=== PATIENT | male | born 1960 | race Two or more races ===

== ENCOUNTER 2024-07-09 10:58 | Emergency (ER) | payer BC, OTHER ==
[~2024-07-09] VITALS: Ht 170.2 cm; Wt 110.6 kg
[2024-07-09] MEDS ORDERED: GENT0.3S10 RIGHTEYE (11:39)
[2024-07-09] MEDS ORDERED: SULF400T11 PO (11:39)
--- NOTE | 2024-07-09 11:41 | ED.PDOC ---
History of Present Illness HPI Comments 63 y.o male presents to the ED for an evaluation of a bug bite. Patient reports there is a tick on his right sided mid back x 1 week and presents with redness around bug bite. Patient also complains of right eye redness and irritation x 3 days, denies any debris, injury, or possible chemical exposure. Patient denies any fever, chills, nausea, vomiting, bleeding or discharge from big bite site. Chief Complaint: Insect Bite Time Seen by MD: 11:33 Primary Care Provider: NARGIS Alexander Notes: Nurses Notes, Medications, Allergies Allergies: Coded Allergies: NO KNOWN ALLERGIES (Unverified , 07/09/24) Home Meds Active Scripts Sulfamethoxazole-Trimethoprim (Bactrim) 1 Tab Tab, 1 TAB PO BID, #14 TAB Prov:BELA BERMEO MD 07/09/24 Gentamicin Sulfate (Gentamicin Sulfate) 0.3 % Ana, 2 DROP RIGHTEYE BID for 5 Days, #5 ML Prov:BELA BERMEO MD 07/09/24 Information Source: Patient Mode of Arrival: Ambulatory Severity: Moderate Timing: Weeks (1) Duration: Since onset Past Medical History PAST MEDICAL HISTORY: CKF, High Lipids, HTN Surgical History: Cholecystectomy Family History Family History: Reviewed,noncontributory to illness Social History Smoker: Non-Smoker Alcohol: Denies ETOH Use Drugs: Denies Drug Use Lives In: Home Constitutional: denies: chills, diaphoresis, fatigue, fever, malaise, sweats, weakness, others EENTM: reports: eye pain, eye redness; denies: blurred vision, double vision, ear bleeding, ear discharge, ear drainage, ear pain, ear ringing, hearing loss, mouth pain, mouth swelling, nasal discharge, nose bleeding, nose congestion, nose pain, photophobia, tearing, throat pain, throat swelling, voice changes, others Respiratory: denies: cough, hemoptysis, orthopnea, SOB at rest, shortness of breath, SOB with excertion, stridor, wheezing, others Cardiovascular: denies: chest pain, dizzy spells, diaphoresis, Dyspnea on exertion, edema, irregular heart beat, left arm pain, lightheadedness, palpitations, PND, syncope, others Gastrointestinal: denies: abdomen distended, abdominal pain, blood streaked bowels, constipated, diarrhea, dysphagia, difficulty swallowing, hematemesis, melena, nausea, poor appetite, poor fluid intake, rectal bleeding, rectal pain, vomiting, others Genitourinary: denies: burning, dysuria, flank pain, frequency, hematuria, incontinence, penile discharge, penile sore, pain, testicle pain, testicle sw elling, urgency, others Neurological: denies: dizziness, fainting, headache, left sided numbness, left sided weakness, numbness, paresthesia, pre-existing deficit, right sided numbness, right sided weakness, seizure, speech problems, tingling, tremors, weakness, others Musculoskeletal: denies: back pain, gout, joint pain, joint swelling, muscle pain, muscle stiffness, neck pain, others Integumetry: reports: others (bug bite (tick) to right upper back ); denies: bruises, change in color, change in hair/nails, dryness, laceration, lesions, lumps, rash, wounds Allergic/Immunocompromised: denies: Difficulty Healing, Frequent Infections, Hives, Itching, others Hematologic/Lymphatic: denies: anemia, blood clots, easy bleeding, easy bruising, swollen glands, others Endocrine: denies: excessive hunger, excessive sweating, excessive thirst, excessive urination, flushing, intolerance to cold, intolerance to heat, unexplained weight gain, unexplained weight loss, others Psychiatric: denies: anxiety, bipolar disorder, depression, hopeless, panic disorder, schizophrenia, sleepless, suicidal, others All Other Systems: Reviewed and Negative Physical Exam General Appearance: No Apparent Distress HEENT: Pharynx Normal, TMs Normal, Other (Redness to the right eye consistent with conjunctivitis and some mild drainage) Neck: Full Range of Motion, Non-Tender, Normal, Normal Inspection Respiratory: Chest Non-Tender, Lungs Clear, No Accessory Muscle Use, No Respiratory Distress, Normal Breath Sounds Cardiovascular: No Edema, No JVD, No Murmur, No Gallop, Normal Peripheral Pulses, Regular Rate/Rhythm Breast Exam: Deferred Gastrointestinal: No Organomegaly, Non Tender, No Pulsatile Mass, Normal Bowel Sounds, Soft Genitalia: Deferred Pelvic: Deferred Rectal: Deferred Extremities: No calf tenderness, Normal capillary refill, Normal inspection, Normal range of motion, Non-tender, No pedal edema Musculoskeletal : Apperance: Normal Neurologic: Alert, director life II-XII nml as Tested, No Motor Deficits, Normal Affect, Normal Mood, No Sensory Deficits Cerebellar Function: Normal Reflexes: Normal Skin: Dry, Warm, Other (Redness to the upper back with what seems to be a possible insect that fell out upon exam) Lymphatic: No Adenopathy Was a procedure done? Was a procedure done?: No Differential Dx Considerations may include: Eye:Conjunctivitis, allergies, styes, iritis, keratitis, and blepharitis Bug bite: cellulitis X-Ray, Labs, Meds, VS Vital Signs Date Time Temp Pulse Resp B/P (MAP) Pulse Ox O2 Delivery O2 Flow Rate FiO2 07/09/24 11:14 97.9 83 18 145/93 (110) 95 97.9 The patient is being discharged with right conjunctivitis We were able to remove the tick from the back. There is some redness around a so the patient also will be started on Bactrim DS The patient will follow up with the primary care doctor The patient will return to the emergency department's condition worsens. Time of 1ST Reevaluation: 11:41 Reevaluation 1ST: Unchanged Patient Education/Counseling: Diagnosis, Treatment, Prognosis, Need For Follow Up Family Education/Counseling: No Family Present Departure 1 Departure Time of Disposition: 12:03 Impression: Primary Impression: Bacterial conjunctivitis of right eye Additional Impressions: Cellulitis of back Insect bite Qualified Codes: S30.860A - Insect bite (nonvenomous) of lower back and pelvis, initial encounter; W57.XXXA - Bitten or stung by nonvenomous insect and other nonvenomous arthropods, initial encounter Disposition: 01 HOME / SELF CARE / HOMELESS Condition: Fair e-Prescriptions Sulfamethoxazole-Trimethoprim (Bactrim) 1 Tab Tab 1 TAB PO BID, #14 TAB Prov: BELA BERMEO MD 07/09/24 Gentamicin Sulfate (Gentamicin Sulfate) 0.3 % Ana 2 DROP RIGHTEYE BID for 5 Days, #5 ML Prov: BELA BERMEO MD 07/09/24 Discharged With: Self Critical Care Note Critical Care Time?: No Stability Stability form required: No Heart Score Heart Score: Heart Score Response (Comments) Value History N/A 0 EKG N/A 0 Age N/A 0 Risk Factors N/A 0 Troponin N/A 0 Total 0 I personally scribed for BELA BERMEO MD ([email or web address]) on 07/09/24 at 11:41. Electronically submitted by Flores Butler ([facility]). BELA BERMEO MD July 09, 2024 11:41
[2024-07-09 12:16] VITALS: BP 157/100; PULSE 68; RESP 16; TEMP 98; O2SAT 96
== END 2024-07-09 12:19 | disposition home or self-care (01) ==
LOC: ER 10:58
DX: S30.860A Insect bite (nonvenomous) of lower back and pelvis, initial encounter (principal); H10.89 Other conjunctivitis; L03.312 Cellulitis of back [any part except buttock and flank]; I12.9 Hypertensive chronic kidney disease with stage 1 through stage 4 chronic kidney disease, or unspecified chronic kidney disease; N18.9 Chronic kidney disease, unspecified; Z90.49 Acquired absence of other specified parts of digestive tract; W57.XXXA Bitten or stung by nonvenomous insect and other nonvenomous arthropods, initial encounter; Y93.89 Activity, other specified; Y92.89 Other specified places as the place of occurrence of the external cause; Y99.8 Other external cause status